=== PATIENT | female | born 2000 | race Caucasian/White ===

== ENCOUNTER 2025-04-27 09:24 | Outpatient (CLI) | payer BC | END 2025-04-27 09:25 | disposition home or self-care (01) | LOC: ULT 09:24 | PROVIDERS: ATTEND Internal Medicine Gastroenterology | DX: R74.01 Elevation of levels of liver transaminase levels (principal); R19.8 Other specified symptoms and signs involving the digestive system and abdomen | CPT/HCPCS: 76705 ==